=== PATIENT | female | born 1965 | race Hispanic/Latino ===

== ENCOUNTER → 2023-07-31 | Outpatient (CLI) | payer OTHER | END | disposition home or self-care (01) | LOC: OIH 12:17 | PROVIDERS: ATTEND Family Medicine | DX: M17.11 Unilateral primary osteoarthritis, right knee (principal); M22.2X1 Patellofemoral disorders, right knee; M25.561 Pain in right knee | CPT/HCPCS: 73562 ==

== ENCOUNTER → 2024-10-06 | Outpatient (CLI) | payer OTHER ==
--- NOTE | 2024-10-06 14:04 | HMCIMG ---
DEXA BONE DENSITY SURVEY HISTORY: Osteoporosis COMPARISON: None FINDINGS: Bone densitometry study was performed. Bone mineral density of the lumbar spine is 0.709 gram per centimeter square which corresponds to a T score of -3.1 and a Z score of -1.7. Bone mineral density of the left hip is 0.676 grams per centimeter square which corresponds to a T score of -2.1 and a Z score of -1.2. IMPRESSION: 1. Osteoporosis of the lumbar spine and osteopenia of left hip.
== END | disposition home or self-care (01) ==
LOC: RAH 09:44
PROVIDERS: ATTEND Family Medicine
DX: M81.0 Age-related osteoporosis without current pathological fracture (principal); M85.852 Other specified disorders of bone density and structure, left thigh
CPT/HCPCS: 77080

== ENCOUNTER → 2024-10-10 | Outpatient (CLI) | payer OTHER | END | disposition home or self-care (01) | LOC: RAH 10:00 | PROVIDERS: ATTEND Family Medicine | DX: Z12.31 Encounter for screening mammogram for malignant neoplasm of breast (principal) | CPT/HCPCS: 77067 ==